=== PATIENT | male | born 1945 | race Two or more races ===

== ENCOUNTER 2025-06-17 09:51 | Emergency (ER) | payer MEDICAID, OTHER ==
[~2025-06-17] VITALS: Ht 170.2 cm; Wt 60.0 kg
--- NOTE | 2025-06-17 10:07 | ED.PDOC ---
History of Present Illness HPI Comments 79-year-old male presents to the ER with no prior medical history associated with a chief complaint of a fall. Patient reports on having right-sided facial hematoma status post fall injury a week ago. Per daughter patient was in [place] when he fell he tripped on a brick and landed on the back of the car. He never had any imaging done when he was there daughter is concerned because he is on a blood thinner. At this time he has pain in his face but no other symptoms Denies LOC, chills, fever, N/V/D, SOB, CP. No other associated symptoms, modifiers, recent injuries or sick contacts present at this time. Chief Complaint: Fall Injury Time Seen by MD: 10:15 Reviewed Notes: Nurses Notes, Medications, Allergies Allergies: Coded Allergies: NO KNOWN ALLERGIES (Unverified , 06/17/25) Information Source: Patient Mode of Arrival: Ambulatory Severity: Moderate Timing: Days Duration: Since onset, Days Prehospital treatment: None Past Medical History Past Medical History (Other): Hard of hearing Surgical History: Denies all surgeries Family History Family History: Reviewed,noncontributory to illness, Unknown Social History Smoker: Non-Smoker Alcohol: Denies ETOH Use Drugs: Denies Drug Use Lives In: Home Constitutional: denies: chills, diaphoresis, fatigue, fever, malaise, sweats, weakness, others EENTM: denies: blurred vision, double vision, ear bleeding, ear discharge, ear drainage, ear pain, ear ringing, eye pain, eye redness, hearing loss, mouth pain, mouth swelling, nasal discharge, nose bleeding, nose congestion, nose pain, photophobia, tearing, throat pain, throat swelling, voice changes, others Respiratory: denies: cough, hemoptysis, orthopnea, SOB at rest, shortness of breath, SOB with excertion, stridor, wheezing, others Cardiovascular: denies: chest pain, dizzy spells, diaphoresis, Dyspnea on exertion, edema, irregular heart beat, left arm pain, lightheadedness, palpitations, PND, syncope, others Gastrointestinal: denies: abdomen distended, abdominal pain, blood streaked bowels, constipated, diarrhea, dysphagia, difficulty swallowing, hematemesis, melena, nausea, poor appetite, poor fluid intake, rectal bleeding, rectal pain, vomiting, others Genitourinary: denies: burning, dysuria, flank pain, frequency, hematuria, incontinence, penile discharge, penile sore, pain, testicle pain, testicle swelling, urgency, others Neurological: denies: dizziness, fainting, headache, left sided numbness, left sided weakness, numbness, paresthesia, pre-existing deficit, right sided numbness, right sided weakness, seizure, speech problems, tingling, tremors, weakness, others Musculoskeletal: denies: back pain, gout, joint pain, joint swelling, muscle pain, muscle stiffness, neck pain, others Integumetry: reports: bruises (Hematoma to the face status post fall injury); denies: change in color, change in hair/nails, dryness, laceration, lesions, lumps, rash, wounds, others Allergic/Immunocompromised: denies: Difficulty Healing, Frequent Infections, Hives, Itching, others Hematologic/Lymphatic: denies: anemia, blood clots, easy bleeding, easy bruis ing, swollen glands, others Endocrine: denies: excessive hunger, excessive sweating, excessive thirst, exc essive urination, flushing, intolerance to cold, intolerance to heat, unexplained weight gain, unexplained weight loss, others Psychiatric: denies: anxiety, bipolar disorder, depression, hopeless, panic disorder, schizophrenia, sleepless, suicidal, others All Other Systems: Reviewed and Negative Physical Exam General Appearance: No Apparent Distress, Normal HEENT: Eye Lid (R), PERRL/EOMI, Pharynx Normal, TMs Normal, Other (Facial bruising to the right eye and right cheek tender to touch with various degrees of dark and yellow discoloration) Neck: Full Range of Motion, Non-Tender, Normal, Normal Inspection Respiratory: Chest Non-Tender, Lungs Clear, No Accessory Muscle Use, No Respiratory Distress, Normal Breath Sounds Cardiovascular: No Edema, No JVD, No Murmur, No Gallop, Normal Peripheral Pulses, Regular Rate/Rhythm Breast Exam: Deferred Gastrointestinal: No Organomegaly, Non Tender, No Pulsatile Mass, Normal Bowel Sounds, Soft Genitalia: Deferred Pelvic: Deferred Rectal: Deferred Extremities: No calf tenderness, Normal capillary refill, Normal inspection, Normal range of motion, Non-tender, No pedal edema Musculoskeletal : Apperance: Normal Neurologic: Alert, production recovery operator II-XII nml as Tested, No Motor Deficits, Normal Affect, Normal Mood, No Sensory Deficits Cerebellar Function: Normal Reflexes: Normal Skin: Bruises, Dry, Normal Color, Warm Lymphatic: No Adenopathy Was a procedure done? Was a procedure done?: No Differential Dx Considerations may include: Fracture versus subdural X-Ray, Labs, Meds, VS Vital Signs Date Time Temp Pulse Resp B/P (MAP) Pulse Ox O2 Delivery O2 Flow Rate FiO2 06/17/25 09:53 98.3 71 18 141/75 95 98.3 [facility] [id number] [place] [address] Ph: [phone] DIAGNOSTIC IMAGING Diagnostic Imaging Report : [id number] Signed PATIENT: LUANNE VALADEZ ACCT: [id number] UNIT: [id number] : 1945 LOC: ER ROOM / BED: / AGE / SEX: 79 / M ADM STATUS: REG ER SERVICE 1027 ORDERING PHYSICIAN: RON PALMER PROCEDURE(s): FAC2C - MAXILLOFACIAL WITHOUT REASON: fall ORDER NUMBER(s): [id number], ACCESSION NUMBER(s): [id number] CLINICAL INFORMATION: Fall injury. TECHNIQUE: Axial CT images of the maxillofacial region were obtained without contrast. Coronal and sagittal reformatted images were obtained, reviewed, and stored. One or more of the following dose reduction techniques were used: Automated exposure control. Adjustment of mA and/or kV according to patient size. CTDIvol = 56.38, 53.6 mGy DLP = 2296.27 mGy-cm COMPARISON: None FINDINGS: The pterygoid plates and zygomatic arches are intact. Sinus guardado and orbital guardado are intact. Nasal bones and mandible are intact. No evidence of facial bone fracture. There is a small superficial ovoid density measuring up to 3 mm along the lateral aspect of the right periorbital region, possible small superficial foreign body in the appropriate clinical setting. Mild right pre malar and periorbital soft tissue swelling. Globes and orbital structures appear intact. No orbital hemorrhage. Retrobulbar fat is unremarkable. [id number]-[id number] mucosal thickening of the paranasal sinuses. Retention cysts versus polyps in the maxillary sinuses bilaterally. Mastoid air cells are clear. No significant soft tissue abnormality identified. IMPRESSION: 1. No evidence of acute facial bone fracture. 2. Mild right pre malar and periorbital soft tissue swelling. Globes and orbital structures are intact. No orbital hematoma. 3. Small 3 mm ovoid density along the right lateral periorbital soft tissues, possible superficial foreign body. Correlate with clinical findings. 4. Paranasal sinus disease as described above. [place] [address] Ph: [phone] DIAGNOSTIC IMAGING Diagnostic Imaging Report : [id number] Signed PATIENT: LUANNE VALADEZ ACCT: [id number] UNIT: [id number] : 1945 LOC: ER ROOM / BED: / AGE / SEX: 79 / M ADM STATUS: REG ER SERVICE 1027 ORDERING PHYSICIAN: RON PALMER PROCEDURE(s): HWOCT - HEAD WITHOUT CONTRAST REASON: fall ORDER NUMBER(s): [id number], ACCESSION NUMBER(s): [id number] CT HEAD WITHOUT CONTRAST INDICATION: fall COMPARISON: None TECHNIQUE: CT of the head without intravenous contrast. RADIATION DOSE: CTDIvol: 56 mGy, DLP: 2290 mGy*cm FINDINGS: There is no evidence of acute intracranial hemorrhage, extra-axial collection, mass effect, midline shift, herniation or hydrocephalus. The ventricles, sulci and cisterns are age appropriate. The min-white differentiation is intact. T he visualized paranasal sinuses and mastoid air cells are clear. The surrounding soft tissues and osseous structures are unremarkable. IMPRESSION: 1. No evidence of acute intracranial hemorrhage, mass effect or hydrocephalus. X-Ray, Labs, Meds, VS Comment Patient seen and examined by me. Patient had a fall in [place] a week ago hitting his face with bruising all over the right side of the face. Daughter states he fell on cement and hit the car. She is concerned because he never had any imaging done when he was there he is currently on a blood thinner. She face and head will be ordered to rule out any injury. CT scan of the facial bones as well as of his head were normal with a any bleeding or fracture. Patient was notified. Bruising will take approximately 10-14 days before it completely heals this is normal. Time of 1ST Reevaluation: 10:45 Reevaluation 1ST: Unchanged Time of 2ND Reevaluation: 11:37 Reevaluation 2ND: Improved Patient Education/Counseling: Diagnosis, Treatment, Prognosis Family Education/Counseling: Diagnosis, Treatment, Need For Follow Up SEPSIS Sepsis Screen Date sepsis recognized/suspect: Jun 17, 2025 Time Sepsis recognized/suspect: 954 Recent Procedure: No On Antibiotic Therapy: No Respiratory Rate >20: No Heart Rate >90: No Temp<36 C (96.8 F) or >38.3 C: No SBP <90 or MAP <65 mmHG: No New Acute Mental Status Change: No Is the patient on CPAP, BIPAP,: No Physician Orders Head Without Contrast (06/17/25 10:27) Maxillofacial Without (06/17/25 10:27) Vital Signs Date Time Temp Pulse Resp B/P (MAP) Pulse Ox O2 Delivery O2 Flow Rate FiO2 06/17/25 09:53 98.3 71 18 141/75 95 98.3 Departure 1 Departure Time of Disposition: 11:38 Impression: Primary Impression: Head contusion Additional Impressions: Facial contusion Fall Disposition: HOME / SELF CARE / HOMELESS Condition: Good Additional Instructions: Your CT scan of your head and face do not show any bleeding or fracture- this is all normal Bruising of your face will probably take another 2 weeks before completely gone which is normal Okay to resume his normal medications Discharged With: Self, Relative (Sibling) Critical Care Note Critical Care Time?: No Stability Stability form required: No I personally scribed for ER (EMERGENCY) on 06/17/25 at 10:07. Electronically submitted by Von Negrete ([email or web address]). I personally scribed for ER (EMERGENCY) on 06/17/25 at 11:31. Electronically submitted by Von Negrete ([email or web address]). ER Jun 17, 2025 10:07 RON PALMER STAINED GLASS ARTIST Jun 17, 2025 10:32
--- NOTE | 2025-06-17 11:11 | DVH ---
CT HEAD WITHOUT CONTRAST INDICATION: fall COMPARISON: None TECHNIQUE: CT of the head without intravenous contrast. RADIATION DOSE: CTDIvol: 56 mGy, DLP: 2290 mGy*cm FINDINGS: There is no evidence of acute intracranial hemorrhage, extra-axial collection, mass effect, midline s hift, herniation or hydrocephalus. The ventricles, sulci and cisterns are age appropriate. The min -white differentiation is intact. The visualized paranasal sinuses and mastoid air cells are clear. The surrounding soft tissues and osseous structures are unremarkable. IMPRESSION: 1. No evidence of acute intracranial hemorrhage, mass effect or hydrocephalus.
--- NOTE | 2025-06-17 11:16 | DVH ---
CLINICAL INFORMATION: Fall injury. TECHNIQUE: Axial CT images of the maxillofacial region were obtained without contrast. Coronal and sa gittal reformatted images were obtained, reviewed, and stored. One or more of the following dose redu ction techniques were used: Automated exposure control. Adjustment of mA and/or kV according to patie nt size. CTDIvol = 56.38, 53.6 mGy DLP = 2296.27 mGy-cm COMPARISON: None FINDINGS: The pterygoid plates and zygomatic arches are intact. Sinus guardado and orbital guardado are i ntact. Nasal bones and mandible are intact. No evidence of facial bone fracture. There is a small sup erficial ovoid density measuring up to 3 mm along the lateral aspect of the right periorbital region, possible small superficial foreign body in the appropriate clinical setting. Mild right pre malar a nd periorbital soft tissue swelling. Globes and orbital structures appear intact. No orbital hemorrha ge. Retrobulbar fat is unremarkable. [id number]-[id number] mucosal thickening of the paranasal sinuses. R etention cysts versus polyps in the maxillary sinuses bilaterally. Mastoid air cells are clear. No si gnificant soft tissue abnormality identified. IMPRESSION: 1. No evidence of acute facial bone fracture. 2. Mild right pre malar and periorbital soft tissue swelling. Globes and orbital structures are inta ct. No orbital hematoma. 3. Small 3 mm ovoid density along the right lateral periorbital soft tissues, possible superficial fo reign body. Correlate with clinical findings. 4. Paranasal sinus disease as described above.
[2025-06-17 11:45] VITALS: BP 128/71; PULSE 72; RESP 16; TEMP 98.1; O2SAT 96
== END 2025-06-17 11:47 | disposition home or self-care (01) ==
LOC: ER 09:51
DX: S00.83XA Contusion of other part of head, initial encounter (principal); S00.11XA Contusion of right eyelid and periocular area, initial encounter; W01.0XXA Fall on same level from slipping, tripping and stumbling without subsequent striking against object, initial encounter; Y93.89 Activity, other specified; Y92.89 Other specified places as the place of occurrence of the external cause; Y99.8 Other external cause status
CPT/HCPCS: 70450; 70486